=== PATIENT | female | born 2000 | race Caucasian/White ===

== ENCOUNTER 2021-09-13 12:29 | Outpatient (CLI) | payer BC ==
[2021-09-13 13:12] LABS: BHCG - Serum Negative (NEGATIVE); Pregs Control Background? CLEAR/WHITE (CLR/WHITE); Pregs Control Bar Appear? YES (CONTROL BAR)
[2021-09-13 22:43] LABS: SARS-CoV-2 PCR by NAA Not Detected (NotDetected)
== END 2021-09-13 12:30 | disposition home or self-care (01) ==
LOC: LABBT 12:29
PROVIDERS: ATTEND Plastic Surgery
DX: Z01.812 Encounter for preprocedural laboratory examination (principal); Z20.822 Contact with and (suspected) exposure to COVID-19
CPT/HCPCS: 84703; U0003; U0005

== ENCOUNTER 2021-09-18 08:34 | Day surgery (SDC) | payer BC ==
[2021-09-15 10:36] VITALS: BMI 33.4
[2021-09-18] MEDS ORDERED: Heparin 5,000 UNITS/ML VIAL ONE (08:58)
[2021-09-18] MEDS ORDERED: Fentanyl 250 MCG/5 ML VIAL ONE (09:09)
[2021-09-18] MEDS ORDERED: Dexmedetomidine 200 MCG/2 ML VIAL ONE (09:09)
[2021-09-18] MEDS ORDERED: Lidocaine 1% w/Epinephrine 1:100K 20 ML VIAL ONE (09:12)
[2021-09-18] MEDS ORDERED: EPINEPHrine 1 MG/ML AMP ONE (09:12)
[2021-09-18] MEDS ORDERED: Bupivacaine 0.25% HCL 30 ML VIAL ONE ×2 (09:12→09:14)
[2021-09-18] MEDS ORDERED: Neomycin-Polymyxin 1 ML AMP ONE (09:12)
[2021-09-18] MEDS ORDERED: Gentamicin 80 MG/2 ML VIAL ONE (09:12)
[2021-09-18] MEDS ORDERED: Lidocaine 2% Jelly 5 ML TUBE ONE (09:23)
[2021-09-18] MEDS ORDERED: Midazolam HCl 2 mg/2 ml Vial ONE ×2 (09:28→09:32)
[2021-09-18] MEDS ORDERED: Glycopyrrolate 0.2 MG/ML 5 ML SYRINGE ONE (09:41)
[2021-09-18] MEDS ORDERED: PROPOFOL 200 MG/20 ML VIAL ONE (09:41)
[2021-09-18] MEDS ORDERED: Ondansetron PF 4 MG/2 ML Vial ONE (09:41)
[2021-09-18] MEDS ORDERED: ePHEDrine 50 MG/ML VIAL ONE (09:41)
[2021-09-18] MEDS ORDERED: Dexamethasone 20 MG/5 ML VIAL ONE (09:41)
[2021-09-18] MEDS ORDERED: Lidocaine 1% PF 5 ML VIAL ONE (09:41)
[2021-09-18] MEDS ORDERED: Ketorolac Tromethamine 30 MG/ML VIAL ONE (09:41)
[2021-09-18] MEDS ORDERED: Rocuronium Bromide 10 MG/ML (10ML VIAL) ONE (09:41)
[2021-09-18] MEDS ORDERED: HYDROmorphone 2 MG/ML VIAL ONE (12:58)
[2021-09-18] MEDS ORDERED: Fentanyl 100 MCG/2 ML VIAL ONE (13:42)
[2021-09-18] MEDS ORDERED: HYDROcodone/Acetaminophen 5/325 mg Tablet ONE (15:31)
[2021-09-18] MEDS ORDERED: Morphine 4 MG/ML VIAL ONE (15:33)
== END 2021-09-18 16:42 | disposition home or self-care (01) ==
LOC: SDC 08:34
PROVIDERS: ATTEND Plastic Surgery
PROC: 0HBV0ZZ Excision of Bilateral Breast, Open Approach (ICD-10-PCS; principal; 2021-09-18)
DX: N62 Hypertrophy of breast (principal); E66.9 Obesity, unspecified; Z68.33 Body mass index [BMI] 33.0-33.9, adult; Z86.16 Personal history of COVID-19; Z91.010 Allergy to peanuts
CPT/HCPCS: 88305; J0171; J0690; J1100; J1170; J1580; J1644; J1885; J2250; J2270; J2405; J2704; J3010; J3370; J3490; S0020

== ENCOUNTER 2021-09-22 11:43 | Day surgery (SDC) | payer BC ==
[2021-09-22] MEDS ORDERED: ceFAZolin 2 GM/DEX 5% 100 ML BAG ONE (14:28)
[2021-09-22] MEDS ORDERED: Scopolamine 1.5 mg/72 hour Patch ONE (15:22)
[2021-09-22] MEDS ORDERED: Fentanyl 100 MCG/2 ML VIAL ONE ×4 (16:01→19:30)
[2021-09-22] MEDS ORDERED: Midazolam HCl 2 mg/2 ml Vial ONE (16:34)
[2021-09-22] MEDS ORDERED: Lidocaine 1% w/Epinephrine 1:100K 20 ML VIAL ONE (16:36)
[2021-09-22] MEDS ORDERED: Bupivacaine 0.25% HCL 30 ML VIAL ONE (16:36)
[2021-09-22] MEDS ORDERED: Lidocaine 1% PF 5 ML VIAL ONE (16:54)
[2021-09-22] MEDS ORDERED: diphenhydrAMINE 50 MG/ML VIAL ONE (16:54)
[2021-09-22] MEDS ORDERED: Dexamethasone 20 MG/5 ML VIAL ONE (16:54)
[2021-09-22] MEDS ORDERED: PROPOFOL 200 MG/20 ML VIAL ONE (16:54)
[2021-09-22] MEDS ORDERED: Ondansetron PF 4 MG/2 ML Vial ONE (16:54)
[2021-09-22] MEDS ORDERED: Tranexamic Acid 1,000 MG/10 ML VIAL ONE (17:27)
[2021-09-22] MEDS ORDERED: Meperidine HCl/PF 25 MG/ML VIAL ONE (19:04)
[2021-09-22] MEDS ORDERED: HYDROcodone/Acetaminophen 5/325 mg Tablet ONE (19:55)
[2021-09-22] MEDS ORDERED: Morphine 4 MG/ML VIAL ONE (20:27)
== END 2021-09-22 21:22 | disposition home or self-care (01) ==
LOC: SDC 11:43
PROVIDERS: ATTEND Plastic Surgery
PROC: 0H9U0ZZ Drainage of Left Breast, Open Approach (ICD-10-PCS; principal; 2021-09-22)
DX: L76.31 Postprocedural hematoma of skin and subcutaneous tissue following a dermatologic procedure (principal); Z91.010 Allergy to peanuts; Z98.890 Other specified postprocedural states; Y83.8 Other surgical procedures as the cause of abnormal reaction of the patient, or of later complication, without mention of misadventure at the time of the procedure
CPT/HCPCS: J2175; J2250; J2270; J3010; S0020